=== PATIENT | female | born 1995 | race Caucasian/White ===

== ENCOUNTER 2017-05-14 23:40 | Emergency (ER) | payer BC, OTHER ==
[~2017-05-14] VITALS: Ht 160 cm; Wt 70.2 kg
[2017-05-14 23:45] VITALS: TEMP 36.4; O2SAT 94; Ht 160 cm; Wt 70.2 kg
[2017-05-15] MEDS ORDERED: ONDANSETRON 4MG OD TAB ONE (00:07)
[2017-05-15 00:58] LABS: CALCIUM 8.2 mg/dl (8.5-10.1); CREATININE 0.87 mg/dl (0.60-1.20); POTASSIUM 2.9 mmol/L (3.5-5.1)
--- NOTE | 2017-05-15 04:02 | EMERGENCY ROOM VISIT NOTE ---
ED Visit Note First contact with patient: 00:00 CHIEF COMPLAINT: Altered mental status from Alcohol overdose HISTORY OF PRESENT ILLNESS: This 21 year old female patient presents to the emergency department via personal vehicle for evaluation of altered mental status, presumably from alcohol intoxication. Patient evidently was drinking alcohol tonight, and contact a male friend. The patient was slurring her words and not making any sense. The male friend drove to her house, where she was outside stumbling near the road. He put her in the vehicle and brought her to the ER for evaluation. The patient does not report chronic medical disease. She admits to drinking alcohol. She denies drug use or injury. No concern for physical or sexual assault. REVIEW OF SYSTEMS: Review of systems was somewhat limited secondary to patient' s presumed alcohol intoxication status. Review of systems was performed to the best of our ability and reperformed as the patient began to sober up. All other systems were reviewed and are negative. ALLERGIES: See EMR MEDICATIONS: See EMR PMH: Latex, penicillin SOCIAL HISTORY: Lives locally, drinks alcohol PHYSICAL EXAM VITALS: Vitals are noted on the nurse's note and reviewed by myself. Vital signs stable. GENERAL: White female, who is in no acute distress and resting comfortably. Patient is visibly altered and smells of alcohol. HEAD: Normocephalic atraumatic. EARS: External ear normal. External auditory canals clear, tympanic membranes pearly meyers without erythema or effusion bilaterally. EYES: Pupils equal round and reactive to light and accommodation. Conjunctivae without injection, sclerae without icterus. Extraocular movements intact. NOSE: Patent, turbinates without inflammation or discharge. MOUTH: Mucous membranes moist. Tonsils are not enlarged. Pharynx without erythema, blood, vomitus, or exudate. Uvula midline. Airway patent. NECK: Supple without nuchal rigidity. No lymphadenopathy. Cervical spine is nontender. HEART: Regular rate and rhythm without murmurs gallops or rubs. LUNGS: Clear to auscultation bilaterally without wheezes, rales or rhonchi. No retractions or accessory muscle use. ABDOMEN: Positive normal bowel sounds x 4. Soft, nontender, without masses or organomegaly. No guarding or rebound tenderness. MUSCULOSKELETAL: No muscle atrophy, erythema, or edema noted. Gross motor function intact to all extremities. NEURO: Patient was alert to person but not place or time. They appear with altered mental status. SKIN: The skin was without rashes, erythema, edema, or bruising. No Tenting of the skin. EMERGENCY DEPARTMENT COURSE: Physical exam and history was performed. Nursing notes and EMR were reviewed. The patient appears to be altered on my examination. I suspect this is from an alcohol overdose. Conservative care measures and aspiration precautions were instituted. The patient was placed on phototypesetting equipment monitor and watched during the patient's stay. The patient was placed in a prone position. Blood work was obtained and was reviewed. The patient's blood alcohol level was 236. This appears to be the primary cause of the altered status. Patient was reevaluated multiple times throughout the course of their emergency department stay. Over time the patient did sober up and was able to talk, walk , and drink fluids without difficulty. The patient was felt stable for discharge home. The patient was given alcohol intoxication handouts. The patient was discharged home in stable condition with a sober friend. Differential diagnosis: Etiologies such as alcohol intoxication, metabolic, infection, hypoglycemia, electrolyte abnormalities, cardiac sources, intracerebral event, toxicologic, neurologic, as well as others were entertained. DIAGNOSIS: Acute alcohol intoxication Current/Historical Medications Unable to Obtain Active Prescriptions or Reported Meds Allergies Coded Allergies: Latex (Verified Allergy, Intermediate, HIVES, 08/04/12) Penicillins (Verified Allergy, Intermediate, HIVES, 08/04/12) Vital Signs Date Time Temp Pulse Resp B/P (MAP) Pulse Ox O2 Delivery O2 Flow Rate FiO2 05/15/17 06:00 88 16 97/51 95 Room Air 05/15/17 05:00 87 16 105/47 97 Room Air 05/15/17 04:05 92 05/15/17 04:00 91 16 109/60 96 Room Air 05/15/17 03:00 84 16 110/56 95 Room Air 05/15/17 02:16 82 16 109/52 97 Room Air 05/15/17 01:00 85 20 107/55 100 Room Air 05/14/17 23:50 96 05/14/17 23:45 36.4 115 16 137/73 96 Room Air 05/14/17 23:45 94 Room Air Laboratory Results 05/15/17 00:16 Test 05/15/17 00:16 Anion Gap 12.0 mmol/L (3-11) Est Creatinine Clear Calc Drug Dose 96.9 ml/min Estimated GFR () 111.1 Estimated GFR (Non- 95.9 BUN/Creatinine Ratio 14.4 (10-20) Calcium Level 8.2 mg/dl (8.5-10.1) Human Chorionic Gonadotropin, Qual NEG (NEG) Ethyl Alcohol mg/dL 236.4 mg/dl (0-3) Medications Administered Medications (Trade) Dose Ordered Sig/Kalee Route Start Time Stop Time Status Last Admin Dose Admin Ondansetron HCl (Zofran Odt) 4 mg STK-MED ONCE .ROUTE 05/15/17 00:07 05/15/17 00:08 DC 05/15/17 00:13 4 MG Departure Information Prescriptions Unable to Obtain Active Prescriptions or Reported Meds Referrals No Doctor, Assigned (PCP) Patient Instructions My [facility]
[2017-05-15 06:00] VITALS: BP 97/51; O2SAT 95
== END 2017-05-15 06:27 | disposition home or self-care (01) ==
LOC: C.EDA 23:40
DX: F10.929 Alcohol use, unspecified with intoxication, unspecified (principal); Y90.7 Blood alcohol level of 200-239 mg/100 ml; Z91.040 Latex allergy status; Z88.0 Allergy status to penicillin